=== PATIENT | female | born 1995 | race Two or more races ===

== ENCOUNTER 2021-06-18 13:12 | Emergency (ER) | payer OTHER | END 2021-06-18 14:30 | disposition left against medical advice (07) | LOC: EMS 13:18 | DX: F29 Unspecified psychosis not due to a substance or known physiological condition (principal); F17.210 Nicotine dependence, cigarettes, uncomplicated; F15.90 Other stimulant use, unspecified, uncomplicated | CPT/HCPCS: 99281; 99283 ==

== ENCOUNTER 2021-06-18 21:30 | Emergency (ER) | payer OTHER ==
[~2021-06-18] VITALS: Ht 160 cm; Wt 77.3 kg
[2021-06-18 22:23] VITALS: BP 118/76
== END 2021-06-18 22:43 | disposition home or self-care (01) ==
LOC: EMS 21:54
DX: F29 Unspecified psychosis not due to a substance or known physiological condition (principal)
CPT/HCPCS: 99284; Z7502